=== PATIENT | female | born 1960 | race Caucasian/White ===

== ENCOUNTER 2018-04-16 13:58 | Emergency (ER) | payer BC ==
[~2018-04-16] VITALS: Ht 154.9 cm; Wt 104.5 kg
[~2018-04-16 13:58] MED LIST: NO HOME MEDICATIONS
[2018-04-16] MEDS ORDERED: PRINIVIL10 MG PO (15:12)
[2018-04-16] MEDS ORDERED: CATAPRES 0.1MG0.1 MG PO (15:24)
[2018-04-16 15:27] VITALS: BP 144/48; PULSE 86
== END 2018-04-16 15:27 | disposition home or self-care (01) ==
LOC: COL.ER 13:58
DX: R04.0 Epistaxis (principal); I10 Essential (primary) hypertension

== ENCOUNTER → 2018-08-22 | Outpatient (CLI) | payer BC ==
[~2018-08-22] MED LIST changes: +CATAPRES 0.1MG0.1 MG PO; +PRINIVIL10 MG PO
== END ==
LOC: MC.RAD 10:28
DX: Z12.31 Encounter for screening mammogram for malignant neoplasm of breast (principal)

== ENCOUNTER 2020-09-06 11:36 | Emergency (ER) | payer OTHER ==
[~2020-09-06] VITALS: Ht 154.9 cm; Wt 119.5 kg
[2020-09-06 13:27] VITALS: BP 111/66; PULSE 79; TEMP 97.6
== END 2020-09-06 13:24 | disposition home or self-care (01) ==
LOC: COL.ER 11:36
DX: R04.0 Epistaxis (principal); I10 Essential (primary) hypertension; J45.909 Unspecified asthma, uncomplicated; Z79.899 Other long term (current) drug therapy